=== PATIENT | male | born 1975 | race Caucasian/White ===

== ENCOUNTER 2020-09-10 14:08 | Emergency (ER) | payer OTHER ==
[~2020-09-10] VITALS: Ht 172.7 cm; Wt 79.4 kg
[~2020-09-10 14:08] MED LIST: ASPIR 8181 MG PO; FLEXERIL PO
[2020-09-10 14:33] LABS: ABSOLUTE NEUTROPHILS 4.4 thou/uL (1.4-8.2); BASOPHILS 0.8 % (0.0-2.0); EOSINOPHILS 0.8 % (0.0-3.0); HEMATOCRIT 43.5 % (42.0-52.0); HEMOGLOBIN 14.6 gm/dL (14.0-18.0); LYMPHOCYTES 29.1 % (24.0-44.0); MCH 30.6 pg (26.0-34.0); MCHC 33.5 g/dL (28.0-37.0); MCV 91.3 fL (80.0-100.0); MONOCYTES 7.3 % (1.0-8.0); PLATELET COUNT 316 thou/uL (150-400); RBC 4.77 mil/uL (4.50-6.00); WBC 7.1 thou/uL (4.0-11.0)
[2020-09-10 14:49] LABS: ANION GAP 8 mmol/L (7-16); BUN 13 mg/dL (7-18); CALCIUM 8.7 mg/dL (8.5-10.1); CHLORIDE 104 mmol/L (98-107); CO2 28 mmol/L (21-32); CREATININE 1.1 mg/dL (0.7-1.3); GLUCOSE 101 mg/dL (74-106); POTASSIUM 3.7 mmol/L (3.5-5.1); SODIUM 140 mmol/L (136-145)
[2020-09-10 14:53] LABS: ALBUMIN 4.1 g/dL (3.4-5.0); SGOT 28 U/L (15-37); SGPT 35 U/L (16-63); TOTAL BILIRUBIN 0.7 mg/dL (0.2-1.0); TOTAL PROTEIN 8.1 g/dL (6.4-8.2); TROPONIN-I <0.06 ng/mL (<0.06)
[2020-09-10 15:31] LABS: FOLIC ACID 20.8 ng/mL (8.6-58.9)
[2020-09-10 16:07] VITALS: BP 118/52
--- NOTE | 2020-09-11 16:51 | EKG ---
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 09/11/20 1651 1523 1523 David Ribeiro MD, FACC /EPI
== END 2020-09-10 17:19 | disposition home or self-care (01) ==
LOC: ER 14:08
PROVIDERS: Physician Assistant
DX: R20.2 Paresthesia of skin (principal); Z86.73 Personal history of transient ischemic attack (TIA), and cerebral infarction without residual deficits; Z79.82 Long term (current) use of aspirin

== ENCOUNTER → 2020-10-03 | Outpatient (CLI) | payer OTHER | LOC: MRI 10-02 12:00 | PROVIDERS: ATTEND Psychiatry & Neurology Neuromuscular Medicine | DX: R20.0 Anesthesia of skin (principal); F41.9 Anxiety disorder, unspecified ==

== ENCOUNTER → 2020-10-03 | Outpatient (CLI) | payer OTHER | LOC: LABMALL 09:59 | PROVIDERS: ATTEND Psychiatry & Neurology Neuromuscular Medicine | DX: R20.0 Anesthesia of skin (principal); F41.9 Anxiety disorder, unspecified ==